=== PATIENT | female | born 1985 | race Caucasian/White ===

== ENCOUNTER 2020-05-31 10:57 | Day surgery (SDC) | payer BC ==
[~2020-05-31] VITALS: Ht 170.2 cm; Wt 78.5 kg
[2020-05-31 11:23] VITALS: BP 114/75
[2020-05-31] MEDS ORDERED: SPIRONOLACTONE PO (11:28)
[2020-05-31] MEDS ORDERED: CHLORHEXIDINE 15 ML UDC MM ONE (11:30)
[2020-05-31] MEDS ORDERED: LACTATED RINGERS 1,000 ML IV SCH (11:30)
[2020-05-31 11:35] LABS: BASOPHILS % (AUTO) 1 % (0-1); EOSINOPHILS % (AUTO) 1 % (1-7); LYMPHOCYTES % (AUTO) 31 % (22-44); MEAN CORPUSCULAR HEMOGLOBIN 31.1 pg (27.0-34.8); MEAN PLATELET VOLUME 7.5 fL (7.4-10.4); MONOCYTES % (AUTO) 9 % (2-9); NEUTROPHILS % (AUTO) 57 % (42-75); PLATELET COUNT 287 x10^3/uL (130-400); RED BLOOD COUNT 4.63 x10^6/uL (3.82-5.3); RED CELL DISTRIBUTION WIDTH 12.4 % (9.6-15.2)
[2020-05-31 11:36] LABS: MD NO
[2020-05-31] MEDS ORDERED: OXYTOCIN 10 UNITS/ML, 1ML ONE (12:14)
[2020-05-31] MEDS ORDERED: METHYLERGONOVINE 0.2 MG/ML IM ONE (12:14)
[2020-05-31] MEDS ORDERED: MISOPROSTOL 200 MCG TABLET ONE (12:14)
[2020-05-31] MEDS ORDERED: SILVER NITRATE STICK TP ONE (12:14)
[2020-05-31] MEDS ORDERED: FENTANYL PF 100 MCG/2ML ONE (12:30)
[2020-05-31] MEDS ORDERED: MIDAZOLAM 1 MG/ML, 2ML ONE (12:30)
[2020-05-31] MEDS ORDERED: PROPOFOL 50 ML ONE (13:52)
[2020-05-31] MEDS ORDERED: IBUP-1840 PO (14:29)
[2020-05-31] MEDS ORDERED: OXYC-306 PO ×2 (14:29)
[2020-05-31] MEDS ORDERED: ONDANSETRON 2MG/ML, 2ML IVPush PRN (14:30)
[2020-05-31] MEDS ORDERED: LORazepam 2 MG/ML, 1ML IVPush PRN (14:30)
[2020-05-31] MEDS ORDERED: MEPERIDINE/PF 25MG/0.5ML IVPush PRN (14:30)
[2020-05-31] MEDS ORDERED: OXYcodone 5 MG/5 ML ORAL.SOL UDC PO PRN (14:30)
[2020-05-31] MEDS ORDERED: FENTANYL PF 100 MCG/2ML IV PRN (14:30)
[2020-05-31] MEDS ORDERED: PROMETHAZINE 25 MG/ML, 1ML IVPush PRN (14:30)
[2020-05-31] MEDS ORDERED: HYDROmorphone 1 MG/ML, 1ML INJ IVPush PRN (14:30)
[2020-05-31] MEDS ORDERED: METHOCARBAMOL 1,000 MG in DEXTROSE 5% 100 ML IV PRN (14:30)
[2020-05-31] MEDS ORDERED: ACETAMINOPHEN 325 MG TABLET PO PRN (14:30)
[2020-05-31] MEDS ORDERED: OXYC-302 PO (14:35)
[2020-05-31] MEDS ORDERED: ONDANSETRON 2MG/ML, 2ML ONE (16:44)
[2020-05-31] MEDS ORDERED: METOCLOPRAMIDE 5 MG/ML, 2ML ONE (16:44)
[2020-05-31] MEDS ORDERED: DEXAMETHASONE 4 MG/ML, 1ML ONE (16:44)
[2020-05-31] MEDS ORDERED: KETOROLAC 30 MG/1 ML ONE (16:44)
[2020-05-31] MEDS ORDERED: CEFAZOLIN 1,000 MG ONE (16:44)
== END 2020-05-31 16:00 | disposition home or self-care (01) ==
LOC: OUT 10:57
PROVIDERS: ATTEND Obstetrics & Gynecology
DX: O02.0 Blighted ovum and nonhydatidiform mole (principal); G43.909 Migraine, unspecified, not intractable, without status migrainosus; F12.90 Cannabis use, unspecified, uncomplicated; Z79.899 Other long term (current) drug therapy; Z98.890 Other specified postprocedural states
CPT/HCPCS: 36415; 59820; 85025; 86850; 86900; 87635; 88305; J0690; J1100; J1885; J2250; J2405; J2704; J2765; J3010; J7120; J2210; J2590